=== PATIENT | female | born 1995 | race Hispanic/Latino ===

== ENCOUNTER 2021-05-14 21:56 | Emergency (ER) | payer OTHER ==
[2021-05-14] MEDS ORDERED: ACETAMINOPHEN 500 MG TAB ONE (22:58)
[2021-05-14 23:15] LABS: SARS-COV-2 RT PCR NEGATIVE (NEGATIVE)
[2021-05-14 23:48] LABS: Urine Blood 3+ (Negative); Urine Glucose Negative (Negative); Urine Protein Negative (Negative); Urine Specific Gravity 1.025 (1.005-1.030); Urine pH 6.5 (5.0-7.0)
[2021-05-14 23:56] LABS: Urine Specific Gravity/Preg 1.025 (1.005-1.030)
[2021-05-15] MEDS ORDERED: NA CHLORIDE 0.9% 1,000 ML ONE (00:27)
[2021-05-15] MEDS ORDERED: KETOROLAC 30 MG/ML INJ ONE (00:27)
[2021-05-15 00:52] LABS: Absolute Lymphocytes (CBC) 2.7 K/uL (0.7-4.9); Basophils % 0.3 % (0-1.3); Hematocrit 38.1 % (36.0-45.0); Lymphocytes % 19.6 % (15.3-44.8); MPV 8.7 fL (7.6-11.3); RBC Red Blood Cell Count 4.33 M/uL (3.86-4.86)
[2021-05-15 01:04] LABS: ALT/SGPT 19 U/L (12-78); AST/SGOT 10 U/L (15-37); Albumin 3.7 g/dL (3.4-5.0); Alkaline Phosphatase 76 U/L (45-117); BUN Blood Urea Nitrogen 9 mg/dL (7-18); Bicarbonate 28 mmol/L (21-32); Bilirubin Direct < 0.1 mg/dL (0-0.2); Bilirubin Total 0.4 mg/dL (0.2-1.0); Glucose Level 92 mg/dL (74-106); Lipase 86 U/L (73-393); Potassium 3.9 mmol/L (3.5-5.1); Protein, Total 7.3 g/dL (6.4-8.2); Sodium Level 142 mmol/L (136-145)
[2021-05-15 02:22] LABS: Urine Bacteria 20-50 /HPF (<20); Urine Mucus 1+ /HPF (NONE SEEN); Urine RBC 20-50 /HPF (NONE SEEN)
[2021-05-15] MEDS ORDERED: CEFTRIAXONE/SWI 1gm 1 GM/10 ML SYR ONE (02:57)
--- NOTE | 2021-05-15 03:01 | ER ---
Nurse's Notes [facility] Name: Janie Quiroga Age: 25 yrs Sex: Female : 1995 Arrival Date: 05/14/2021 Time: 22:01 Bed 12 Private MD: Diagnosis: Pyelonephritis;Viral Syndrome Presentation: 05/14 22:18 Chief complaint: Patient states: Right sided flank pain, headache, fever, runny nose, kg sore throat, chest pain x 2 days. Coronavirus screen: Vaccine status: Patient reports being unvaccinated. fever, headache, Client presents with at least one sign or symptom that may indicate coronavirus-19. Standard/surgical mask placed on the client. Provider contacted for isolation considerations. Ebola Screen: Patient negative for fever greater than or equal to 101.5 degrees Fahrenheit, and additional compatible Ebola Virus Disease symptoms Patient denies exposure to infectious person. Patient denies travel to an Ebola-affected area in the 21 days before illness onset. Initial Sepsis Screen: Does the patient meet any 2 criteria? No. Patient's initial sepsis screen is negative. Does the patient have a suspected source of infection? No. Patient's initial sepsis screen is negative. Risk Assessment: Do you want to hurt yourself or someone else? Patient reports no desire to harm self or others. Onset of symptoms was May 13, 2021. 22:18 Method Of Arrival: Ambulatory kg 22:18 Acuity: UBALDO 4 kg Triage Assessment: 22:21 General: Appears in no apparent distress. Behavior is calm, cooperative, appropriate kg for age, quiet. Pain: Complains of pain in right upper quadrant. Respiratory: Reports shortness of breath at rest on exertion cough that is non-productive, pain with cough Onset: The symptoms/episode began/occurred yesterday, the patient has mild shortness of breath. 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 - Social history:: Smoking status: Patient denies any tobacco usage or history of. Screenin:37 Abuse screen: Denies threats or abuse. Nutritional screening: No deficits noted. ch4 Tuberculosis screening: No symptoms or risk factors identified. Fall Risk None identified. Assessment: 22:37 General: Appears in no apparent distress. uncomfortable. Pain: Denies pain. Neuro: No ch4 deficits noted. Cardiovascular: No deficits noted. Rhythm is regular. Respiratory: No deficits noted. Airway is patent Respiratory effort is unlabored, Breath sounds are clear. GI: No deficits noted. : No deficits noted. EENT: No deficits noted. Derm: No deficits noted. Musculoskeletal: No deficits noted. Vital Signs: 22:18 BP 96 / 69; Pulse 97; Resp 20; Temp 100.9; Pulse Ox 100% on R/A; Weight 77.11 kg (R); kg Height 5 ft. 2 in. (157.48 cm) (R); Pain 6/10; 05/15 02:36 BP 101 / 74; Pulse 80; Resp 18; Pulse Ox 100% on R/A; Pain 0/10; kc4 02:58 Temp 98.7(O); lh3 05/14 22:18 Body Mass Index 31.09 (77.11 kg, 157.48 cm) kg ED Course: 05/14 22:01 Patient arrived in ED. ag3 22:20 Triage completed. kg 22:21 Arm band placed on right wrist. kg 22:34 Kena Villavicencio, RN is Primary Nurse. ch4 22:37 Patient has correct armband on for positive identification. Placed in gown. Bed in low ch4 position. Call light in reach. Side rails up X 1. 22:44 Rajan Agustin MD is Attending Physician. 7 05/15 00:11 Inserted saline lock: 20 gauge in right antecubital area, using aseptic technique. kc4 00:18 CT Stone Protocol In Process Unspecified. EDMS 00:18 Flu Sent. kc4 00:20 Chest Pa And Lat (2 Views) XRAY In Process Unspecified. EDMS 00:45 Basic Metabolic Panel Sent. wg 00:45 Urine --Ancillary (enter results) Sent. wg 01:59 Urine Microscopic Only Sent. kc4 03:00 Jesse Pickett MD is Referral Physician. 7 03:13 IV discontinued, intact, bleeding controlled, No redness/swelling at site. Pressure kc4 dressing applied. 03:14 No provider procedures requiring assistance completed. kc4 Administered Medications: 05/14 22:34 Drug: Tylenol 1000 mg Route: PO; ch4 23:40 Follow up: Response: No adverse reaction kc4 05/15 00:10 Drug: NS 0.9% 1000 ml Route: IV; Rate: 1000 ml; Site: right antecubital; kc4 03:11 Follow up: Response: No adverse reaction kc4 00:10 Drug: Ketorolac 30 mg Route: IVP; Site: right antecubital; kc4 01:59 Follow up: Response: No adverse reaction kc4 03:11 Follow up: Response: No adverse reaction kc4 02:36 Drug: Rocephin (cefTRIAXone) 1 grams Route: IV; Rate: per protocol; Site: right kc4 antecubital; 03:11 Follow up: Response: No adverse reaction kc4 Outcome: 03:01 Discharge ordered by . [facility] 03:12 Patient left the ED. kc4 03:14 Discharged to home ambulatory. kc4 03:14 Condition: stable 03:14 Discharge instructions given to patient, Instructed on discharge instructions, follow up and referral plans. Demonstrated understanding of instructions, follow-up care, medications, Prescriptions given X 2. Signatures: Dispatcher [employer] Luz Maria Avila 3 Rajan Agustin MD MD [facility] Annie Tai RN RN kg Ria Valdovinos RN RN 3 Kena Villavicencio RN RN [facility] John Cruz RN Izzy Tuttle kc4 Corrections: (The following items were deleted from the chart) 05/14 22:22 22:20 PMHx: None; kg kg 22:22 22:20 PSHx: None; kg kg
--- NOTE | 2021-05-15 03:01 | EDPHYS ---
Physician Documentation [facility] Name: Janie Quiroga Age: 25 yrs Sex: Female : 1995 Arrival Date: 05/14/2021 Time: 22:01 Bed 12 Private MD: ED Physician Rajan Agustin HPI: 05/15 00:02 This 25 yrs old Female presents to ER via Ambulatory with complaints of Flank mh7 Pain. Cough. Sore throat.. 00:03 The patient complains of pain in the right flank. The pain does not radiate. Onset: The mh7 symptoms/episode began/occurred 2 day(s) ago. Modifying factors: The symptoms are alleviated by nothing. the symptoms are aggravated by nothing. Associated signs and symptoms: Pertinent positives: fever, cough, sore throat. 00:03 Severity of pain: At its worst the pain was moderate yesterday, in the emergency mh7 department the pain has improved moderately. 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 - Social history:: Smoking status: Patient denies any tobacco usage or history of. ROS: 05/15 00:03 Eyes: Negative for injury, pain, redness, and discharge, Neck: Negative for injury, mh7 pain, and swelling. Abdomen/GI: Negative for abdominal pain, nausea, vomiting, diarrhea, and constipation, : Negative for injury, bleeding, discharge, and swelling, MS/Extremity: Negative for injury and deformity, Skin: Negative for injury, rash, and discoloration. Psych: Negative for depression, anxiety, suicide ideation, homicidal ideation, and hallucinations, Allergy/Immunology: Negative for hives, rash, and allergies, Endocrine: Negative for neck swelling, polydipsia, polyuria, polyphagia, and marked weight changes, Hematologic/Lymphatic: Negative for swollen nodes, abnormal bleeding, and unusual bruising. Cardiovascular: Positive for chest pain, with cough, Negative for edema, orthopnea, palpitations, paroxysmal nocturnal dyspnea, acute changes. Respiratory: Negative for dyspnea on exertion, hemoptysis, orthopnea, pleurisy, shortness of breath, sputum production, wheezing. Neuro: Positive for headache, Negative for altered mental status, dizziness, gait disturbance, hearing loss, loss of consciousness, numbness, seizure activity, speech changes, syncope, near syncope, tingling, tinnitus, tremor, visual changes, weakness. Exam: 00:03 Constitutional: This is a well developed, well nourished patient who is awake, alert, mh7 and in no acute distress. Head/Face: Normocephalic, atraumatic. Eyes: Pupils equal round and reactive to light, extra-ocular motions intact. Lids and lashes normal. Conjunctiva and sclera are non-icteric and not injected. Cornea within normal limits. Periorbital areas with no swelling, redness, or edema. Neck: Trachea midline, no thyromegaly or masses palpated, and no cervical lymphadenopathy. Supple, full range of motion without nuchal rigidity, or vertebral point tenderness. No Meningismus. Chest/axilla: Normal chest wall appearance and motion. Nontender with no deformity. No lesions are appreciated. Cardiovascular: Regular rate and rhythm with a normal S1 and S2. No gallops, murmurs, or rubs. Normal PMI, no JVD. No pulse deficits. Respiratory: Lungs have equal breath sounds bilaterally, clear to auscultation and percussion. No rales, rhonchi or wheezes noted. No increased work of breathing, no retractions or nasal flaring. Abdomen/GI: Soft, non-tender, with normal bowel sounds. No distension or tympany. No guarding or rebound. No evidence of tenderness throughout. 00:03 Skin: Warm, dry with normal turgor. Normal color with no rashes, no lesions, and no evidence of cellulitis. MS/ Extremity: Pulses equal, no cyanosis. Neurovascular intact. Full, normal range of motion. Neuro: Awake and alert, GCS 15, oriented to person, place, time, and situation. Cranial nerves II-XII grossly intact. Motor strength 5/5 in all extremities. Sensory grossly intact. Cerebellar exam normal. Normal gait. Psych: Awake, alert, with orientation to person, place and time. Behavior, mood, and affect are within normal limits. 00:03 Back: ROM is normal, normal spinal alignment noted, CVA tenderness, that is moderate, is noted on the right, muscle spasm, is not present. Vital Signs: 05/14 22:18 BP 96 / 69; Pulse 97; Resp 20; Temp 100.9; Pulse Ox 100% on R/A; Weight 77.11 kg (R); kg Height 5 ft. 2 in. (157.48 cm) (R); Pain 6/10; 05/15 02:36 BP 101 / 74; Pulse 80; Resp 18; Pulse Ox 100% on R/A; Pain 0/10; kc4 02:58 Temp 98.7(O); lh3 05/14 22:18 Body Mass Index 31.09 (77.11 kg, 157.48 cm) kg MDM: 02:58 Differential diagnosis: nephrolithiasis, pyelonephritis, UTI, diverticulitis. Data [facility] reviewed: vital signs, nurses notes, lab test result(s), CBC, electrolytes, Flu: negative urinalysis, UPT: negative radiologic studies, CT scan, plain films. Data interpreted: Pulse oximetry: on room air is 100 %. Interpretation: normal. Counseling: I had a detailed discussion with the patient and/or guardian regarding: the historical points, exam findings, and any diagnostic results supporting the discharge/admit diagnosis, lab results, radiology results, the need for outpatient follow up, to return to the emergency department if symptoms worsen or persist or if there are any questions or concerns that arise at home. Response to treatment: the patient's symptoms have resolved after treatment, the patient's blood pressure is in an acceptable range, mental status has returned to baseline, the patient no longer shows bradycardia, the patient is not short of breath, the patient is not tachycardic, the patient's pain is gone, the patient's temperature has normalized. ED course: Feels better, no acute distress, vital signs stable, no focal neurological deficits. Afebrile, temp equals 98.7, no chest pain, no shortness of breath, no nausea, no vomiting, no complaints. Discussed all test results and findings with patient and answered all of her questions. Tolerating oral intake without difficulty.. 03:01 Patient medically screened. [facility] 05/14 22:24 Order name: Flu kg 05/14 22:24 Order name: Strep; Complete Time: 23:34 kg 05/14 23:04 Order name: Throat Culture [facility] 05/14 23:15 Order name: COVID-19/FLU A+B; Complete Time: 23:34 [facility] 05/14 23:48 Order name: Urine Dipstick-Ancillary; Complete Time: 23:58 [facility] 05/14 23:51 Order name: Urine --Ancillary (enter results) [facility] 05/14 23:51 Order name: Urine --Ancillary; Complete Time: 23:58 [facility] 05/14 23:59 Order name: Basic Metabolic Panel [facility] 05/14 23:59 Order name: CBC with Diff; Complete Time: 01:06 [facility] 05/14 23:59 Order name: Hepatic Function; Complete Time: 01:06 [facility] 05/14 23:59 Order name: Lipase; Complete Time: 01:06 [facility] 05/14 23:59 Order name: Basic Metabolic Panel; Complete Time: 01:06 [facility] 05/14 23:40 Order name: Urine Dipstick-Ancillary (obtain specimen); Complete Time: 00:18 [facility] 05/14 23:40 Order name: Urine Test (obtain specimen); Complete Time: 00:18 [facility] 05/14 23:40 Order name: Chest Pa And Lat (2 Views) XRAY [facility] 05/14 23:41 Order name: PO challenge; Complete Time: 00:45 [facility] 05/14 23:59 Order name: IV Saline Lock; Complete Time: 00:18 [facility] 05/14 23:59 Order name: Labs collected and sent; Complete Time: 00:45 [facility] 05/14 23:59 Order name: CT Stone Protocol [facility] 05/15 00:55 Order name: Urine Microscopic Only; Complete Time: 02:28 [facility] 05/15 02:23 Order name: Urine Culture EDMS Administered Medications: 05/14 22:34 Drug: Tylenol 1000 mg Route: PO; ch4 23:40 Follow up: Response: No adverse reaction 4 05/15 00:10 Drug: NS 0.9% 1000 ml Route: IV; Rate: 1000 ml; Site: right antecubital; kc4 03:11 Follow up: Response: No adverse reaction 4 00:10 Drug: Ketorolac 30 mg Route: IVP; Site: right antecubital; kc4 01:59 Follow up: Response: No adverse reaction kc4 03:11 Follow up: Response: No adverse reaction [facility] 02:36 Drug: Rocephin (cefTRIAXone) 1 grams Route: IV; Rate: per protocol; Site: right kc4 antecubital; 03:11 Follow up: Response: No adverse reaction kc4 Disposition Summary: 05/15/21 03:01 Discharge Ordered Location: Home [facility] Problem: new [facility] Symptoms: have improved [facility] Condition: Stable [facility] Diagnosis - Pyelonephritis [facility] - Viral Syndrome [facility] Followup: [facility] - With: Private Physician - When: 1 - 2 days - Reason: Worsening of condition, Recheck today's complaints, Continuance of care, Re-evaluation by your physician Followup: [facility] - With: Jesse Pickett MD - When: 1 - 2 days - Reason: Worsening of condition, Recheck today's complaints Discharge Instructions: - Discharge Summary Sheet [facility] - Pyelonephritis, Adult, [id number] [facility] - Viral Respiratory Infection, [id number] [facility] Forms: - Medication Reconciliation Form [facility] - Thank You Letter [facility] - Antibiotic Education [facility] - Prescription Opioid Use [facility] Prescriptions: - Ibuprofen 800 mg Oral Tablet - take 1 tablet by ORAL route every 8 hours As needed take with food; 15 tablet; [facility] Refills: 0, Product Selection Permitted - Cipro 500 mg Oral Tablet - take 1 tablet by ORAL route every 12 hours for 10 days; 20 tablet; Refills: 0, [facility] Product Selection Permitted Signatures: Dispatcher [employer] DIONKY Rajan Agustin MD MD [facility] Annie Tai RN RN Kena Villavicencio RN RN [facility] Izzy Tuttle 4 Corrections: (The following items were deleted from the chart) 05/14 22:22 22:20 PMHx: None; kg kg 22:22 22:20 PSHx: None; kg kg 22:36 22:25 Influenza Screen (A ordered. EDMS EDMS 22:36 22:25 CORONAVIRUS+ ordered. EDMS EDMS
[2021-05-15 05:19] VITALS: O2SAT 100
[2021-05-15 05:21] VITALS: BP 101/74
[2021-05-15 05:22] VITALS: TEMP 98.7
--- NOTE | 2021-05-15 07:48 | RAD REPORT ---
EXAM DESCRIPTION: Ramandeep Torres (2 Views)05/15/2021 12:20 am CLINICAL HISTORY: Cough COMPARISON: None FINDINGS: The lungs appear clear of acute infiltrate. The heart is normal size IMPRESSION: No acute abnormalities displayed
--- NOTE | 2021-05-15 17:32 | RAD REPORT ---
EXAM DESCRIPTION: CT - Stone Protocol - 05/15/2021 6:43 am CLINICAL HISTORY: FLANK PAIN COMPARISON: None Available. TECHNIQUE: CT of the abdomen and pelvis without IV contrast. Evaluation of the solid organs and vasc ulature is suboptimal due to lack of IV contrast. This exam was performed according to our department al dose-optimization program, which includes automated exposure control, adjustment of the mA and/or kV according to patient size and/or use of iterative reconstruction technique. FINDINGS: Lung Bases: The visualized lung bases are clear. Bones: No destructive bone lesions identified. Abdomen: Liver: The liver has normal size and density. Gallbladder: No calcified gallstones. Spleen, Pancreas, and Adrenal Glands: The spleen, pancreas, and adrenal glands are unremarkable. Kidneys: The kidneys have normal size without evidence of hydronephrosis. No obstructing ureteral greer culi. Vasculature: The aorta and IVC have normal caliber and position. Stomach: The stomach and duodenum have normal course. Other: No free intraperitoneal air. No free fluid or lymphadenopathy. Pelvis: Bladder: Urinary bladder is unremarkable. Bowel: No dilated loops of large or small bowel. Large amount of stool. Appendix: Normal appendix. Pelvis: 3.4 cm right ovarian cyst. Uterus is not enlarged. IMPRESSION: 1. No acute inflammatory or obstructive process identified. 2. 3.4 cm probably benign right ovarian cyst. 3.4 cm probably benign ovarian cyst. Recommend foll ow-up pelvic US in 6-12 weeks. Reference: J Am Ismael Radiol 2013;[id number] Electronically signed by: Mauro Bhat 05/15/2021 12:39 AM CDT Due to temporary technical issues with the PACS/Fluency reporting system, reports are being signed by the in house radiologists without review as a courtesy to insure prompt reporting. The interpreting radiologist is fully responsible for the content of the report.
== END 2021-05-15 03:12 | disposition home or self-care (01) ==
LOC: ER 21:56
DX: N12 Tubulo-interstitial nephritis, not specified as acute or chronic (principal); B34.9 Viral infection, unspecified; Z20.822 Contact with and (suspected) exposure to COVID-19
CPT/HCPCS: 87070; 87088; 85025; 87086; 80048; 36415; 81025; 80076; 87081; 81003; 81015; 83690; 0240U; 76377; 74176; 71046; 96375; 96374; 99284; J0696; J7030

== ENCOUNTER 2023-02-17 22:17 | Emergency (ER) | payer OTHER ==
--- OUTSIDE RECORDS SUMMARY | 2023-02-17 22:20 | XMS REPORT | Continuity of Care Document ---
:1995 Author Organization [facility] t Address [address] [place] [address] Care Team Providers Name Role Phone [facility] Primary Care Physician Unavailable JACLYN FOSTER Attending Clinician Unavailable Jaclyn Tomlinson Attending Clinician BRIANDA SHARMA Attending Clinician Unavailable Brianda Sharma DO Attending Clinician Payers Payer Name Policy Type Policy Number Effective Date Expiration Date Tatyana schwab FORMERLY [facility] [id number] 2021 00:00:00 Problems Condition Condition Condition Status Onset Resolution Last Treating Co mments Source Name Details Category Date Date Treatment Clinician Date No known No known Disease Unive rs active active ity of problems problems [facility] Allergies, Adverse Reactions, Alerts Allergy Allergy Status Severity Reaction(s) Onset Inactive Treating Comm ents Source Name Type Date Date Clinician NO KNOWN Drug Active Univers ALLERGIE Class ity of S [facility] Social History Social Habit Start Date Stop Date Quantity Comments Source Exposure to 2022-07-03 2022-07-13 Not sure [facility] SARS-CoV-2 (event) 00:00:00 23:56:00 Medica l Branch Sex Ass[birth year] At [birth year] [facility] 00:00:00 00:00:00 Medical Branch Smoking Status Start Date Stop Date Source Tobacco smoking consumption Univ [facility] Medical unknown Branch Medications Ordered Filled Start Stop Current Ordering Indication Dosage Frequency Signature Comments Components Source Medication Medication Date Date Medication? Clinician (SIG) Name Name hydrOXYzine 2021-08 Yes [id number] 25mg Take 1 Univers 25 mg 1-23 tablet by ity of tablet 00:00: mouth [place] 00 every 6 Medical (six) Branch hours as needed for Itching. cefixime 2020-08- No [id number] 400mg Take 1 U nivers 400 mg 2-17 12-25 capsule by ity of capsule 00:00: 05:59 mouth [place] 00 :00 daily for Medical 7 days. Branch clindamycin 2020-08- No [id number] 300mg Take 1 Univers 300 mg 2-17 12-25 capsule by ity of capsule 00:00: 05:59 mouth 4 [place] 00 :00 (four) Medical times Branch daily for 7 days. Vital Signs Vital Name Observation Time Observation Value Comments Source Systolic blood 2022-07-14 05:57:00 108 mm[Hg] Univer sity [facility] Diastolic blood 2022-07-14 05:57:00 76 mm[Hg] [facility] 2022-07-14 05:57:00 75 /min [facility] Body temperature 2022-07-14 05:57:00 37.11 [facility] Respiratory rate 2022-07-14 05:57:00 18 /min [facility] Body height 2022-07-14 05:57:00 157.5 cm [facility] Body weight 2022-07-14 05:57:00 79.47 kg [facility] BMI 2022-07-14 05:57:00 32.04 kg/m2 [facility] Oxygen saturation in 2022-07-14 05:57:00 98 /min [facility] Arterial blood by [facility] Pulse oximetry Branch Systolic blood 2021-08-08 02:02:00 110 mm[Hg] Univer sity [facility] Diastolic blood 2021-08-08 02:02:00 80 mm[Hg] Unive rsity [facility] Heart rate 2021-08-08 02:02:00 72 /min [facility] Respiratory rate 2021-08-08 02:02:00 16 /min [facility] Oxygen saturation in 2021-08-08 02:02:00 100 /min [facility] Arterial blood by [facility] Pulse oximetry Branch Body temperature 2021-08-08 01:00:00 37.28 [facility] Body height 2021-08-08 01:00:00 157.5 cm [facility] Body weight 2021-08-08 01:00:00 48.535 kg [facility] BMI 2021-08-08 01:00:00 19.57 kg/m2 [facility] Procedures Procedure Date / Time Performed Performing Clinician Sour e NOTICE OF PRIVACY 2022-07-14 05:52:58 Doctor Unassigned, No [facility] CONSENT/REFUSAL FOR 2022-07-14 05:51:55 Doctor Unassigned, No [facility] [place] [facility] Name Medical Branch TREATMENT NOTICE OF PRIVACY 2021-08-08 00:41:49 Doctor Unassigned, No [facility] Name Medical Branch CONSENT/REFUSAL FOR 2021-08-08 00:41:24 Doctor Unassigned, No [facility] [place] DIAGNOS[facility] AND Name Medical Branch TREATMENT Encounters Start End Encounter Admission Attending Care Care Encounter Source Date/Time Date/Time Type Type Clinicians Facility Department ID 2023-01-20 2023-01-20 Outpatient [facility] [id number] Mickey 09:10:30 09:10:30 [id number] F Saurabh 2023-01-07 2023-01-07 Outpatient [facility] [id number] Mickey 10:30:14 10:30:14 [id number] F Saurabh 2022-08-09 2022-08-09 Outpatient [facility] [id number] Mickey 16:23:27 16:23:27 [id number] F Saurabh 2022-07-14 2022-07-14 Emergency X TAB FOSTER ERT [id number] Univers 00:00:00 00:17:00 JACLYN marshall [facility] [place] 2022-07-14 2022-07-14 Emergency TAB Foster [id number] Univers 00:00:00 00:17:00 Jaclyn VANESSA [id number] i ty of [place] [id number] [facility] [id number] [facility] 084 Branch 2021-08-07 2021-08-07 Emergency X SINGER PAYONATAN ERT [id number] Univers 19:08:00 20:35:00 BRIANDA marshall [facility] [place] 2021-08-07 2021-08-07 Emergency Singer [facility] [id number] Univers 19:08:00 20:35:00 Brianda VANESSA [id number] i ty of [place] [id number] [facility] [id number] [place] [id number] Branch Results Test Description Test Time Test Comments Results Result Comments Source CT/NG, NAAT, URINE 2022-08-11 20:41:34 Test Item Value Reference Range Interpretation Comme nts GONORRHEA, NAAT (test code = NEGATIVE NEGATIVE Note: Testing is performed with 49802) Meri YDLLAN 680 systems using real-time polymerase chain reaction (PCR) method. CHLAMYDIA, NAAT (test code = NEGATIVE NEGATIVE Note: Testing is performed with 09725) Meri DYLLAN 680 systems using real-time polymerase chain reaction (PCR) method. VAGINAL PATHOGENS DNA [id number] 14:42:48 Test Item Value Reference Range Interpretation Comments RUTH SPECIES NEGATIVE NEGATIVE (test code = ) G. VAGINALIS NEGATIVE NEGATIVE (test code = ) T. VAGINALIS NEGATIVE NEGATIVE Note: The BD A ffirm VPIII (test code = Microbial Ident ification ) Testis a DNA pr obe test intended for us e in the detectionand id entification of Ruth spec ies, Gardnerellavagi nalis and Trichomonas vag inalis nucleic acid. HIV 1/2 4TH GEN, RFLX [id number] 06:06:40 Test Item Value Reference Range Interpretation Comments HIV 1/2 4TH GEN, RFLX CONF (test NON-REACTIVE NON-REACTIVE code = 3514) HEPATITIS PANEL, [id number] 06:06:40 Test Item Value Reference Range Interpretation Comments HEPATITIS A IgM (test NON-REACTIVE NON-REACTIVE code = 90018) HEPATITIS B CORE IgM NON-REACTIVE NON-REACTIVE (test code = 4644) HEPATITIS B SURF AG NON-REACTIVE NON-REACTIVE (test code = 2739) HEPATITIS C ANTIBODY NON-REACTIVE NON-REACTIVE (test code = 4675) INTERPRETATION (NOTE) Hepatitis A HEPATITIS A: (test serology shows no code = 2552) evidence of acu te hepatitis A. INTERPRETATION (NOTE) Hepatitis B HEPATITIS B: (test serology shows no code = 16674) evidence of ac alejandra hepatitis B and no indication of exposure to hepatitis B vir us in the previous si xto eight months. INTERPRETATION (NOTE) Hepatitis C HEPATITIS C: (test serology shows no code = 80947) evidence of ex posure to hepatitisC v irus at this time. I t can take up to 12 m onths after exposure tothe hepatitis C vir us for antibodies to become detectab le in the blood in ce rtain patients. UNLES S OTHERWISE INDIC ATED, ALL TESTING PERFORMED [facility], [facility]. [address] [place] [id number] [place] [address] DIRECTOR: ALEXYS MCCLELLAN M.D. [place] NUMBER [id number] [place] [id number] 03:12:18 Test Item Value Reference Range Interpretation Comments RPR RESULT (test code = NON-REACTIVE NON-REACTIVE 3501) RPR TITER (test code = 3500) NOT INDIC. TITER NOT INDIC.
[2023-02-17] MEDS ORDERED: DIPHENHYDRAMINE 50 MG/ML VIAL ONE (22:58)
[2023-02-17] MEDS ORDERED: dexAMETHasone 10 MG/ML VIAL ONE (22:58)
[2023-02-17] MEDS ORDERED: METOCLOPRAMIDE 10 MG/2mL INJ ONE (22:58)
[2023-02-17] MEDS ORDERED: NA CHLORIDE 0.9% 1,000 ML ONE (22:59)
[2023-02-17] MEDS ORDERED: KETOROLAC 30 MG/ML INJ ONE (22:59)
--- NOTE | 2023-02-17 23:35 | ER ---
Nurse's Notes [facility] Name: Janie Quiroga Age: 27 yrs Sex: Female : 1995 Arrival Date: 02/17/2023 Time: 22:17 Bed 8 Private MD: Diagnosis: Headache Presentation: 02/17 22:35 Chief complaint: Patient states: headache X7 days but getting worse. im shaky and felt lg3 like i was going to faint. i also feel like my words aren't coming out right and im not making sense. Coronavirus screen: Client denies travel out of the [place] in the last 14 days. Client presents with at least one sign or symptom that may indicate coronavirus-19. Standard/surgical mask placed on the client. Ebola Screen: No symptoms or risks identified at this time. Initial Sepsis Screen: Does the patient meet any 2 criteria? No. Patient's initial sepsis screen is negative. Does the patient have a suspected source of infection? No. Patient's initial sepsis screen is negative. Risk Assessment: Do you want to hurt yourself or someone else? Patient reports no desire to harm self or others. Onset of symptoms is unknown. 22:35 Method Of Arrival: Ambulatory lg3 22:35 Acuity: UBALDO 3 lg3 Triage Assessment: 22:40 Headache History: The patient has had previous headaches and this one is different than lg3 previous episodes, and this one is more severe than previous episodes. General: Appears in no apparent distress. comfortable, Behavior is calm, cooperative. Pain: Complains of pain in head Pain currently is 10 out of 10 on a pain scale. Pain began gradually, Also complains of nausea, photophobia, inability to concentrate. EENT: No deficits noted. No signs and/or symptoms were reported regarding the EENT system. Neuro: Level of Consciousness is awake, alert, obeys commands, Oriented to person, place, time, situation. Cardiovascular: No deficits noted. Respiratory: No deficits noted. Airway is patent Respiratory effort is even, unlabored, Respiratory pattern is regular, symmetrical. GI: No deficits noted. No signs and/or symptoms were reported involving the gastrointestinal system. : No deficits noted. No signs and/or symptoms were reported regarding the genitourinary system. Derm: No deficits noted. No signs and/or symptoms reported regarding the dermatologic system. Skin is intact, is healthy with good turgor, Skin is dry, Skin is normal, Skin temperature is warm. Musculoskeletal: No deficits noted. No signs and/or symptoms reported regarding the musculoskeletal system. 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 - Social history:: Smoking status: Patient denies any tobacco usage or history of. Patient/guardian denies using alcohol, street drugs. Screenin:05 [facility] ED Fall Risk Assessment (Adult) History of falling in the last 3 months, kl including since admission No falls in past 3 months (0 pts) Confusion or Disorientation No (0 pts) Intoxicated or Sedated No (0 pts) Impaired Gait No (0 pts) Mobility Assist Device Used No (0 pt) Altered Elimination No (0 pt) Score/Fall Risk Level 0 - 2 = Low Risk Oriented to surroundings, Maintained a safe environment. Abuse screen: Denies threats or abuse. Nutritional screening: No deficits noted. Tuberculosis screening: No symptoms or risk factors identified. Assessment: 23:04 General: Appears in no apparent distress. comfortable, Behavior is calm, cooperative. kl Pain: Complains of pain in head Pain currently is 7 out of 10 on a pain scale. Neuro: No deficits noted. Cardiovascular: No deficits noted. Respiratory: No deficits noted. Airway is patent Trachea midline Respiratory effort is even, unlabored. GI: No deficits noted. No signs and/or symptoms were reported involving the gastrointestinal system. : No deficits noted. No signs and/or symptoms were reported regarding the genitourinary system. Vital Signs: 22:35 BP 126 / 74; Pulse 71; Resp 17 S; Temp 99(O); Pulse Ox 99% on R/A; Weight 80.74 kg (R); lg3 Height 5 ft. 2 in. (R); 23:32 BP 102 / 71; Pulse 60; Resp 16; Pulse Ox 100% on R/A; kl 23:41 BP 106 / 63; Pulse 63; Resp 16; Pulse Ox 99% on R/A; kl 22:35 Body Mass Index 32.56 (80.74 kg, 157.48 cm) lg3 Toribio Coma Score: 23:50 Eye Response: spontaneous(4). Motor Response: obeys commands(6). Verbal Response: kb oriented(5). Total: 15. ED Course: 22:31 Patient arrived in ED. ag3 22:33 Michelle Rojo FNP-C is [facility]. kb 22:33 Sacha Salazar MD is Attending Physician. kb 22:40 Triage completed. lg3 22:40 Arm band placed on right wrist. lg3 22:56 Inserted saline lock: 20 gauge in right antecubital area, using aseptic technique. jw7 23:05 Patient has correct armband on for positive identification. Bed in low position. Call kl light in reach. Side rails up X2. 23:05 Pulse ox on. NIBP on. kl 23:32 No apparent distress. Resting quietly. Appears to be sleeping. kl 23:42 No provider procedures requiring assistance completed. IV discontinued, intact, kl bleeding controlled, No redness/swelling at site. Pressure dressing applied. Administered Medications: 22:41 CANCELLED (Physician Discretion): Dexamethasone IM 10 mg IM once kb 22:50 Drug: NS 0.9% IV 1000 ml Route: IV; Rate: 1000 ml; Site: right antecubital; kl 22:50 Drug: metoCLOPramide IVP 10 mg Route: IVP; Site: right antecubital; kl 23:31 Follow up: Response: No adverse reaction; Marked relief of symptoms kl 22:55 Drug: diphenhydrAMINE IVP 12.5 mg Route: IVP; Site: right antecubital; kl 23:31 Follow up: Response: No adverse reaction; Marked relief of symptoms kl 22:55 Drug: Ketorolac IVP 15 mg Route: IVP; Site: right antecubital; kl 23:31 Follow up: Response: No adverse reaction; Marked relief of symptoms kl 23:03 Drug: Decadron - Dexamethasone IVP 10 mg Route: IVP; Site: right antecubital; kl 23:31 Follow up: Response: No adverse reaction; Marked relief of symptoms kl Medication: 23:42 VIS not applicable for this client. kl Outcome: 23:34 Discharge ordered by . suzanna 23:42 Discharged to home ambulatory. kl 23:42 Condition: stable 23:42 Discharge instructions given to patient, Instructed on discharge instructions, follow up and referral plans. Demonstrated understanding of instructions, follow-up care. 23:42 Patient left the ED. kl Signatures: Michelle Rojo, NETWORK ARCHITECT-C TONI-Estefania Montes RN RN Luz Maria Ceja 3 Negar Miller RN RN 3 Halima Quick jw7 Corrections: (The following items were deleted from the chart) 23:03 20:50 Ketorolac IVP 15 mg IVP in right antecubital kl kl
--- NOTE | 2023-02-17 23:35 | EDPHYS ---
Physician Documentation [facility] Name: Janie Quiroga Age: 27 yrs Sex: Female : 1995 Arrival Date: 02/17/2023 Time: 22:17 Bed 8 Private MD: ED Physician Sacha Salazar HPI: 02/17 23:51 This 27 yrs old Female presents to ER via Ambulatory with complaints of kb Headache, FACIAL PAIN. 23:51 The patient complains of pain to the left side of head. The patient describes the kb headache as constant. Onset: The symptoms/episode began/occurred 1 week(s) ago. Associated signs and symptoms: Pertinent positives: Photophobia. Severity of symptoms: At its worst the pain was moderate, in the emergency department the pain is unchanged. Headache History: The patient has had previous headaches and this one is more severe than previous episodes. The symptoms are alleviated by nothing. the symptoms are aggravated by lights, noise. The patient has experienced similar episodes in the past, several times. The patient has not recently seen a physician. 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 - Social history:: Smoking status: Patient denies any tobacco usage or history of. Patient/guardian denies using alcohol, street drugs. ROS: 23:50 Constitutional: Negative for fever, chills, and weight loss. kb 23:50 Neuro: Positive for headache. 23:50 All other systems are negative. Exam: 23:50 Constitutional: This is a well developed, well nourished patient who is awake, alert, kb and in no acute distress. Head/Face: Normocephalic, atraumatic. Cardiovascular: Regular rate and rhythm with a normal S1 and S2. No gallops, murmurs, or rubs. No pulse deficits. Respiratory: Respirations even and unlabored. No increased work of breathing. Talking in full sentences Abdomen/GI: Soft, non-tender. No distention Skin: Warm, dry with normal turgor. Normal color. MS/ Extremity: Pulses equal, no cyanosis. Neurovascular intact. Full, normal range of motion. Neuro: Awake and alert, GCS 15, oriented to person, place, time, and situation. Moves all extremities. Normal gait. 23:50 ENT: TM's: fluid levels, on the left. Vital Signs: 22:35 BP 126 / 74; Pulse 71; Resp 17 S; Temp 99(O); Pulse Ox 99% on R/A; Weight 80.74 kg (R); lg3 Height 5 ft. 2 in. (R); 23:32 BP 102 / 71; Pulse 60; Resp 16; Pulse Ox 100% on R/A; kl 23:41 BP 106 / 63; Pulse 63; Resp 16; Pulse Ox 99% on R/A; kl 22:35 Body Mass Index 32.56 (80.74 kg, 157.48 cm) lg3 [place] Coma Score: 23:50 Eye Response: spontaneous(4). Motor Response: obeys commands(6). Verbal Response: kb oriented(5). Total: 15. MDM: 22:33 Patient medically screened. kb 23:50 Differential diagnosis: migraine, sinusitis, tension headache. Data reviewed: vital kb signs, nurses notes. Counseling: I had a detailed discussion with the patient and/or guardian regarding: the historical points, exam findings, and any diagnostic results supporting the discharge/admit diagnosis, the need for outpatient follow up, a family practitioner, to return to the emergency department if symptoms worsen or persist or if there are any questions or concerns that arise at home. Response to treatment: the patient's symptoms have resolved after treatment. 02/17 22:41 Order name: IV Start; Complete Time: 22:57 kb Administered Medications: 22:41 CANCELLED (Physician Discretion): Dexamethasone IM 10 mg IM once kb 22:50 Drug: NS 0.9% IV 1000 ml Route: IV; Rate: 1000 ml; Site: right antecubital; kl 22:50 Drug: metoCLOPramide IVP 10 mg Route: IVP; Site: right antecubital; kl 23:31 Follow up: Response: No adverse reaction; Marked relief of symptoms kl 22:55 Drug: diphenhydrAMINE IVP 12.5 mg Route: IVP; Site: right antecubital; kl 23:31 Follow up: Response: No adverse reaction; Marked relief of symptoms kl 22:55 Drug: Ketorolac IVP 15 mg Route: IVP; Site: right antecubital; kl 23:31 Follow up: Response: No adverse reaction; Marked relief of symptoms kl 23:03 Drug: Decadron - Dexamethasone IVP 10 mg Route: IVP; Site: right antecubital; kl 23:31 Follow up: Response: No adverse reaction; Marked relief of symptoms kl Disposition: 02/18 01:29 Co-signature as Attending Physician, Sacha Salazar MD I agree with the assessment sp4 and plan of care. I reviewed the patient's care provided by the Advanced Practice Provider and agree with the diagnosis and treatment plan. Disposition Summary: 02/17/23 23:34 Discharge Ordered Location: Home kb Condition: Stable kb Diagnosis - Headache kb Followup: kb - With: Emergency Department - When: As needed - Reason: Worsening of condition Followup: kb - With: Private Physician - When: 2 - 3 days - Reason: Recheck today's complaints, Continuance of care, Re-evaluation by your physician Discharge Instructions: - Discharge Summary Sheet kb - Migraine Headache, [id number] kb - General Headache Without Cause, [id number] kb Forms: - Medication Reconciliation Form kb - Thank You Letter kb - Antibiotic Education kb - Prescription Opioid Use kb - [email or web address].htm kb Signatures: Michelle Rojo FNP-C FNP-Estefania Montes RN RN kl Gibson, Lacie, RN RN lg3 Potepalov, Sergey, MD MD sp4 Corrections: (The following items were deleted from the chart) 02/17 22:41 22:41 Dexamethasone IM 10 mg IM once ordered. kb kb
[2023-02-18 00:34] VITALS: TEMP 99
[2023-02-18 00:37] VITALS: BP 106/63; O2SAT 99
== END 2023-02-17 23:42 | disposition home or self-care (01) ==
LOC: ER 22:17
DX: R51.9 Headache, unspecified (principal)
CPT/HCPCS: 96375; 96374; 99284; J2765; J1200; J1100; J7030